=== PATIENT | male | born 1965 | race Caucasian/White ===

== ENCOUNTER → 2018-04-20 10:22 | Outpatient (CLI) | payer OTHER, SELFPAY ==
--- NOTE | 2018-04-20 10:23 | DI.RAD.S_ITS ---
PROCEDURE: XR FINGER LT MIN 2V INDICATIONS: L finger pain TECHNIQUE: AP hand, 2 views of the left fifth finger(s) acquired. COMPARISON: None. FINDINGS: Bones: No fractures or dislocations. No suspicious bony lesions. Soft tissues: No suspicious soft tissue calcifications. IMPRESSION: No fracture. No osseous lesion. If there are persistent symptoms or clinical suspicion for pathology, then repeat radiographs or advanced imaging (CT, MRI or bone scan) should be considered for further evaluation. Dictated by: Joyce Watson MD, PhD on 04/20/2018 at 10:40 Approved by: Joyce Watson MD, PhD on 04/20/2018 at 10:41
== END ==
PROVIDERS: Visit Provider Physician Assistant
DX: M79.645 Pain in left finger(s) (principal)
CPT/HCPCS: 73140

== ENCOUNTER → 2024-02-26 13:28 | Outpatient (CLI) | payer OTHER, SELFPAY ==
--- NOTE | 2024-02-26 13:32 | DI.MRI.S_ITS ---
PROCEDURE: MR ANKLE RT WO CON INDICATIONS: SPRAIN OF RT ANKLE/ACUTE INJURY TECHNIQUE: Noncontrast sagittal T1 spin echo and T2 fast spin echo with fat saturation, axial proton density fast spin echo and T2 fast spin echo with fat saturation, coronal T1 spin echo and T2 fast spin echo with fat saturation through the ankle/hindfoot. COMPARISON: None. FINDINGS: Image quality: Excellent. Bones: Marrow edema is present at the posterior calcaneal tuberosity (6/14), subjacent to the insertion of the Achilles tendon. The anterior process of the calcaneus and lateral process of the talus are intact. No talar dome osteochondral defect is seen. Joints: There is no significant joint effusion. Sinus tarsi: The sinus tarsi signal is normal. Syndesmotic ligaments: The anterior and posterior inferior syndesmotic ligaments are ossified, likely secondary to prior tearing/remodeling (3/6). Lateral collateral ligament: There is thickening of the lateral collateral ligaments without a focal tear. Heterotopic ossification is present at the fibular attachment of the anterior talofibular ligament. There is also thickening of the accessory anterior-inferior tibiofibular ligament (6/7). Deltoid ligament: The visualized components of the deltoid ligament, that being the posterior tibiotalar and tibiospring ligaments, are thickened with low signal, but without a focal tear. Calcaneonavicular spring ligament: The superomedial component of the calcaneonavicular spring ligament is grossly intact. Tendons: There is intermediate signal thickening of the visualized Achilles tendon, up to a maximum of 1.2 cm in the AP dimension (4/21). Interstitial fluid signal is present at the insertional Achilles tendon contacting the calcaneal tuberosity (6/15; 4/27). There is a split tear of the peroneus brevis with distal reconstitution (/16-25). The extensor, flexor and peroneal tendons are otherwise normal. The peroneal tendons are appropriately situated within the retromalleolar groove, and the superficial peroneal retinaculum is intact. Plantar aponeurosis: There is no abnormal thickening of, abnormal intrasubstance signal involving, or perifascial edema about the plantar aponeurosis. Plantar musculature: There are no findings of denervation involving the plantar muscles of the foot. Nerves: The visualized nerves are unremarkable. Other: Moderate Achilles calcaneal and plantar calcaneal enthesopathy. Mild edema in Kager's fat pad (6/15). No significant fluid in the retrocalcaneal bursa, retro Achilles bursa, or Achilles paratenon. IMPRESSION: 1. Severe Achilles tendinosis with interstitial/partial tearing at the calcaneal insertion and reactive calcaneal marrow edema. No full-thickness tear at this time. 2. Chronic sprains of the lateral collateral and deltoid ligament complexes. 3. Chronic split tear of the peroneus brevis. 4. Prior syndesmotic ligament injury with heterotopic ossification. 5. Thickening of the accessory anterior-inferior tibiofibular ligament, which can be seen with anterolateral ankle impingement pathology. Dictated by: Kendell Rodriguez M.D. on 02/28/2024 at 16:08 Approved by: Kendell Rodriguez M.D. on 02/28/2024 at 16:23
== END ==
PROVIDERS: Referring Provider Physician Assistant Surgical; Visit Provider Physician Assistant Surgical
DX: S86.011A Strain of right Achilles tendon, initial encounter (principal); S93.421A Sprain of deltoid ligament of right ankle, initial encounter; S93.491A Sprain of other ligament of right ankle, initial encounter; X58.XXXA Exposure to other specified factors, initial encounter
CPT/HCPCS: 73721